=== PATIENT | female | born 1980 | race African-American/Black ===

== ENCOUNTER 2017-10-28 18:03 | Emergency (ER) | payer MEDICAID ==
[2017-10-28] MEDS ORDERED: NORMAL SALINE 1000 ML 1,000 ML IV ONE (18:34)
[2017-10-28] MEDS ORDERED: ONDANSETRON HCL INJ/PF 4 MG/2 ML SDV IV ONE (18:34)
--- NOTE | 2017-10-28 18:40 | ER Document Report ---
ED Medical Screen (RME) - General Chief Complaint: Abdominal Pain Stated Complaint: ABDOMINAL PAIN Time Seen by Provider: 10/28/17 18:33 Mode of Arrival: Ambulatory Information source: Patient TRAVEL OUTSIDE OF THE [place] IN LAST 30 DAYS: No - HPI Patient complains to provider of: abd pain Onset: This morning - pt. with h/o UC with abd pain starting earlier today with vomiting - Related Data Allergies/Adverse Reactions: acetaminophen [From Tylenol] Adverse Reaction (Verified 11/22/13 13:16) Liver damage droperidol [Droperidol] Adverse Reaction (Verified 11/22/13 13:16) Liver damage fentanyl [Fentanyl] Adverse Reaction (Verified 11/22/13 13:16) Liver damage ketorolac tromethamine [From Toradol] Adverse Reaction (Verified 11/22/13 13:16) Liver damage NSAIDS (Non-Steroidal Anti-Inflamma [Nsaids] Adverse Reaction (Verified 13:16) Liver damage tramadol [Tramadol] Adverse Reaction (Verified 11/22/13 13:16) Liver damage Past Medical History GI Medical History: Reports: Hx Ulcerative Colitis Past Surgical History: Reports: Hx Section - Immunizations Hx Diphtheria, Pertussis, Tetanus Vaccination: Yes Physical Exam - Vital signs Vitals: Temp Pulse Resp BP Pulse Ox 98.7 F 104 H 18 120/81 99 10/28/17 18:25 10/28/17 18:25 10/28/17 18:25 10/28/17 18:25 10/28/17 18:25 Course - Vital Signs Vital signs: Temp Pulse Resp BP Pulse Ox 98.7 F 104 H 18 120/81 99 10/28/17 18:25 10/28/17 18:25 10/28/17 18:25 10/28/17 18:25 10/28/17 18:25
[2017-10-28] MEDS ORDERED: HYDROMORPHONE HCL INJ/PF 2 MG/ML AMPULE IV ONE ×2 (18:44→22:40)
--- NOTE | 2017-10-28 19:29 | RADIOLOGY REPORT (SQ) ---
EXAM DESCRIPTION: ACUTE ABDOMEN SERIES COMPLETED DATE/TIME: 10/28/2017 7:06 pm REASON FOR STUDY: abd pain COMPARISON: None. NUMBER OF VIEWS: Three views. TECHNIQUE: Frontal chest, supine abdomen and upright/decubitus abdomen radiographic images acquired. LIMITATIONS: None. FINDINGS: CHEST: Lungs clear of infiltrates. Right chest port. FREE AIR: None. No abnormal gas collections. BOWEL GAS PATTERN: Nonobstructive pattern. No dilated loops or air fluid levels. CONSTIPATION: mild. CALCIFICATIONS: No suspicious calcifications. HARDWARE: None in the abdomen. SOFT TISSUES: No gross mass or suggestion of organomegaly. BONES: No acute fracture. No worrisome bone lesions. OTHER: No other significant finding. IMPRESSION: NO RADIOGRAPHIC EVIDENCE FOR ACUTE ABDOMINAL DISEASE. CONSTIPATION. TECHNICAL DOCUMENTATION: JOB ID: [id number] [place]-72 2010 [employer]- All Rights Reserved Reading location - IP/workstation name: [employer]
[2017-10-28 20:22] LABS: HEMATOCRIT 42.5 % (36.0-47.0); HEMOGLOBIN 14.6 g/dL (12.0-15.5); MEAN CORPUSCULAR HEMOGLOBIN 29.5 pg (27.0-33.4); MEAN CORPUSCULAR HGB CONC 34.3 g/dL (32.0-36.0); MEAN CORPUSCULAR VOLUME 86 fl (80-97); PLATELET COUNT 295 10^3/uL (150-450); RED BLOOD COUNT 4.95 10^6/uL (3.72-5.28); RED CELL DISTRIBUTION WIDTH 13.3 % (11.5-14.0); WHITE BLOOD COUNT 22.8 10^3/uL (4.0-10.5)
[2017-10-28 20:27] LABS: ALANINE AMINOTRANSFERASE 31 U/L (9-52); ALKALINE PHOSPHATASE 87 U/L (38-126); ANION GAP 16 (5-19); ASPARTATE AMINO TRANSFERASE 25 U/L (14-36); BILIRUBIN,DIRECT 0.5 mg/dL (0.0-0.4); BILIRUBIN,TOTAL 0.5 mg/dL (0.2-1.3); BLOOD UREA NITROGEN 12 mg/dL (7-20); CARBON DIOXIDE 22 mmol/L (22-30); CHLORIDE 102 mmol/L (98-107); GLUCOSE 259 mg/dL (75-110); LIPASE 95.3 U/L (23-300); POTASSIUM 3.8 mmol/L (3.6-5.0); SODIUM 140.4 mmol/L (137-145); TOTAL PROTEIN 7.3 g/dL (6.3-8.2)
[2017-10-28 20:53] LABS: ABSOLUTE LYMPHOCYTES# (MANUAL) 2.5 10^3/uL (0.5-4.7); ABSOLUTE MONOCYTES # (MANUAL) 0.9 10^3/uL (0.1-1.4); ABSOLUTE NEUTROPHILS# (MANUAL) 19.4 10^3/uL (1.7-8.2); BASOPHILS % (MANUAL) 0 % (0-2); EOSINOPHILS % (MANUAL) 0 % (0-6); LYMPHOCYTES % (MANUAL) 11 % (13-45); MONOCYTES % (MANUAL) 4 % (3-13); SEGMENTED NEUTROPHILS % (MAN) 85 % (42-78); TOTAL CELLS COUNTED 100
[2017-10-28 20:55] LABS: TOXIC GRANULATION SLIGHT; TOXIC VACUOLATION PRESENT
[2017-10-28 20:56] LABS: PLATELET COMMENT ADEQUATE
[2017-10-28] MEDS ORDERED: CEFTRIAXONE INJ 1000 MG VIAL IV ONE (22:11)
[2017-10-28] MEDS ORDERED: METHYLPREDNISOLONE INJ 125 MG/2 ML SDV IV ONE (22:11)
[2017-10-28] MEDS ORDERED: METRONIDAZOLE 500 MG/NS RTU 100 ML IV ONE (22:13)
[2017-10-28] MEDS ORDERED: MORPHINE SULFATE 10 MG/ML INJ IV PRN (22:13)
--- NOTE | 2017-10-28 22:15 | ER Document Report ---
ED General - General Chief Complaint: Abdominal Pain Stated Complaint: ABDOMINAL PAIN Time Seen by Provider: 10/28/17 18:33 Mode of Arrival: Ambulatory Notes: Patient is a 37-year-old female with past medical history of ulcerative colitis as well as a surgical history of a cholecystectomy who presents with 3-4 days of progressively worsening generalized abdominal pain, vomiting with inability to tolerate oral intake for at least the past 24 hours, as well as not having had a bowel movement in the past 5 days. She describes her abdominal pain as a generalized, cramping, aching pain. Nothing improves or worsens that pain. Patient states that she has been trying stool softeners and MiraLAX to try to relieve any constipation that she may have without any improvement of her abdominal pain. She also reports that she has not had a bowel movement in 5 days only having a mucousy substance past when she attempted to have a bowel movement. She states this feels similar to prior flares of her ulcerative colitis that she has had in the past. She currently receives her Remicade infusion every 3 weeks and states that she has not missed any dosing. She has not yet followed up with her GI doctor regarding today's concerns. TRAVEL OUTSIDE OF THE [place] IN LAST 30 DAYS: No - Related Data Allergies/Adverse Reactions: metoclopramide [From Reglan] Adverse Reaction (Severe, Verified 10/28/17 18:40) Dystonia acetaminophen [From Tylenol] Adverse Reaction (Verified 11/22/13 13:16) Liver damage droperidol [Droperidol] Adverse Reaction (Verified 11/22/13 13:16) Liver damage fentanyl [Fentanyl] Adverse Reaction (Verified 11/22/13 13:16) Liver damage ketorolac tromethamine [From Toradol] Adverse Reaction (Verified 11/22/13 13:16) Liver damage NSAIDS (Non-Steroidal Anti-Inflamma [Nsaids] Adverse Reaction (Verified 13:16) Liver damage tramadol [Tramadol] Adverse Reaction (Verified 11/22/13 13:16) Liver damage Past Medical History - General Information source: Patient - Social History Smoking Status: Never Smoker Chew tobacco use (# tins/day): No Frequency of alcohol use: None Drug Abuse: None Lives with: Family Family History: Reviewed & Not Pertinent, DM, Hypertension, Other - CHF Patient has suicidal ideation: No Patient has homicidal ideation: No Renal/ Medical History: Denies: Hx Peritoneal Dialysis GI Medical History: Reports: Hx Ulcerative Colitis Past Surgical History: Reports: Hx Section - Immunizations Hx Diphtheria, Pertussis, Tetanus Vaccination: Yes Review of Systems - Review of Systems Notes: Constitutional: Negative for fever. HENT: Negative for sore throat. Eyes: Negative for visual changes. Cardiovascular: Negative for chest pain. Respiratory: Negative for shortness of breath. Gastrointestinal: Positive for abdominal pain and vomiting Genitourinary: Negative for dysuria. Musculoskeletal: Negative for back pain. Skin: Negative for rash. Neurological: Negative for headaches, weakness or numbness. 10 point ROS negative except as marked above and in HPI. Physical Exam - Vital signs Vitals: Temp Pulse Resp BP Pulse Ox 98.7 F 104 H 18 120/81 99 10/28/17 18:25 10/28/17 18:25 10/28/17 18:25 10/28/17 18:25 10/28/17 18:25 Interpretation: Tachycardic Notes: PHYSICAL EXAMINATION: GENERAL: Appears moderately uncomfortable but in no acute distress HEAD: Atraumatic, normocephalic. EYES: Pupils equal round and reactive to light, extraocular movements intact, sclera anicteric, conjunctiva are normal. ENT: nares patent, oropharynx clear without exudates. Dry mucous membranes. NECK: Normal range of motion, supple without lymphadenopathy LUNGS: Breath sounds clear to auscultation bilaterally and equal. No wheezes rales or rhonchi. HEART: Regular tachycardia without murmurs ABDOMEN: Soft, generalized abdominal tenderness without any localization of the pain on palpation, normoactive bowel sounds. No guarding, no rebound. No masses appreciated. EXTREMITIES: Normal range of motion, no pitting or edema. No cyanosis. NEUROLOGICAL: No focal neurological deficits. Moves all extremities spontaneously and on command. PSYCH: Normal mood, normal affect. SKIN: Warm, Dry, normal turgor, no rashes or lesions noted. Course - Re-evaluation Re-evalutation: 10/28/17 22:13 Patient presents with generalized abdominal pain, vomiting and lack of a bowel movement for at least the past 7 days. Labs are notable for a marked leukocytosis and hyperglycemia but otherwise unremarkable. Her three-view abdomen demonstrates constipation but no evidence of an overt obstruction. The patient does have a long-standing history of ulcerative colitis and her clinical history appears to be most consistent with an acute ulcerative colitis flare. The patient has declined a CT scan of abdomen pelvis to further clarify stating that she has had so many of these that she is no longer comfortable with this unless it is an absolute necessity. She has already had a cholecystectomy and a do not suspect an acute biliary pathology. Clinical history is not consistent with an acute pancreatitis, bowel perforation, mesenteric ischemia, or an acute appendicitis. Given the degree of the patient' s pain, her persistent vomiting, and lab derangements I do not believe it is safe for her to be discharged home. I will begin treating her with IV steroids , IV antibiotics, IV fluids and will request hospitalization. 10/29/17 00:11 I did attempt to discuss this case with the hospitalist Dr. Varela who did not feel comfortable except in this patient as we do not have GI coverage. I do not feel this patient warrants emergent transfer for GI consultation as it seems very reasonable to trial the patient on IV steroids, antibiotics and fluids as well as symptom control and see if she has improvement in her symptoms. If she is failing to improve at that time I think a CT scan will be appropriate to evaluate for any possible surgical pathology and the patient is also agreeable to this plan. However Dr. Varela did not feel comfortable with this plan. I therefore contacted [facility] and spoke with Dr. Escamilla the hospitalist mill tender second operator. He likewise did not see an indication for transfer and would like to speak to the hospitalist directly to clarify the indication for transfer. 10/29/17 00:53 Dr. Escamilla is accepted the patient although apparently Dr. Varela did refuse to speak to him regarding consideration of keeping this patient here at this hospital. I am concerned that there may be an EMTALA violation at this point as the patient does not appear to require an emergent transfer and the accepting physician is also stating he has concerns about the validity of this transfer. He is however being gracious in accepting this transfer. I am following hospital protocol for notifying the appropriate administrator pesticide of this possible violation prior to transferring the patient. - Vital Signs Vital signs: Temp Pulse Resp BP Pulse Ox 98.5 F 88 18 129/88 H 99 10/28/17 23:22 10/28/17 23:22 10/28/17 23:22 10/28/17 23:22 10/28/17 23:22 - Laboratory Result Diagrams: 10/28/17 19:30 10/28/17 19:30 Laboratory results interpreted by me: 10/28/17 10/28/17 19:30 19:30 WBC 22.8 H Seg Neuts % (Manual) 85 H Lymphocytes % (Manual) 11 L Abs Neuts (Manual) 19.4 H Glucose 259 H Direct Bilirubin 0.5 H - Diagnostic Test Radiology reviewed: Image reviewed, Reports reviewed Radiology results interpreted by me: 10/29/17 01:20 3 view of the abdomen: Constipation, no evidence of obstruction or free air Discharge - Discharge Clinical Impression: Generalized abdominal pain Ulcerative colitis Qualifiers: Ulcerative colitis location: unspecified ulcerative colitis location Digestive disease complication type: unspecified complication Qualified Code(s): K51.919 - Ulcerative colitis, unspecified with unspecified complications Vomiting Qualifiers: Vomiting type: unspecified Vomiting Intractability: intractable Nausea presence : with nausea Qualified Code(s): R11.2 - Nausea with vomiting, unspecified Leukocytosis Qualifiers: Leukocytosis type: unspecified Qualified Code(s): D72.829 - Elevated white blood cell count, unspecified Condition: Fair Disposition: [facility]
[2017-10-29] MEDS ORDERED: PROMETHAZINE HCL INJ 25 MG/1 ML VIAL IV ONE ×2 (00:55→02:58)
[2017-10-29] MEDS ORDERED: DIPHENHYDRAMINE HCL 50 MG/ML VIAL IV ONE (01:14)
[2017-10-29] MEDS ORDERED: HYDROMORPHONE HCL INJ/PF 2 MG/ML AMPULE IV PRN ×2 (02:59→05:52)
--- NOTE | 2017-10-29 03:34 | PDOC CONSULTATION ---
Consultation Consult reason:: Ulcerative colitis flare. History of Present Illness Patient complains of: Nausea vomiting and worsening abdominal pain and constipation for about a week. History of Present Illness: HALEIGH MENDOZA is a 37 year old female history of ulcerative colitis (on Remicade) and type 2 diabetes mellitus presented to the ED with above-mentioned complaints. The patient complains of generalized abdominal pain mainly on the right side which she describes as spasm/cramping, 10/10 in intensity somewhat improved with IV Dilaudid given in the ED. She said that she has been nauseous and vomiting for several days. Her vomitus was of food consistency and sometimes bilious, no hematemesis. She denied any fever chills. Her appetite has been poor. She also has been constipated for more than a week despite taking MiraLAX. She usually follows with Dr. Cm Fuentes (GI in [place] ) and she is on Remicade every 3 weeks. Her next dose is on 11/03/2017. In the ED, her temperature was 98.7, heart rate 104, respiratory rate 18, blood pressure 120/81 with oxygen saturation of 99% on room air. Her WBC was 22.8 with a hemoglobin of 14.6. An acute abdominal series was done which only showed obstipation. She received 1 g of Rocephin 1 and 500 mg IV Flagyl 1 in addition to 1 mg IV Dilaudid 2 and multiple doses of Phenergan with some improvement in her symptoms. Past Medical History Endocrine Medical History: Reports: Diabetes Mellitus Type 2 GI Medical History: Reports: Ulcerative Colitis Past Surgical History Past Surgical History: Reports: Section, Cholecystectomy Social History Lives with: Family Smoking Status: Never Smoker Cigarettes Packs Per Day: 0 Frequency of Alcohol Use: None Family History Family History: DM, Hypertension, Other - CHF Parental Family History Reviewed: Yes - Mother: Heart disease and diabetes Children Family History Reviewed: No Sibling(s) Family History Reviewed.: Yes Medication/Allergy Home Medications: Oxycodone HCl 5 mg PO ASDIR PRN 11/22/13 Oxycodone HCl [Oxy-Ir 5 mg Tablet] 5 mg PO Q4HP PRN #12 tab 11/22/13 Promethazine HCl [Phenergan 25 mg Tablet] 25 - 50 mg PO ASDIR PRN 11/22/13 Remicade 11/22/13 Allergies/Adverse Reactions: metoclopramide [From Reglan] Adverse Reaction (Severe, Verified 10/28/17 18:40) Dystonia acetaminophen [From Tylenol] Adverse Reaction (Verified 11/22/13 13:16) Liver damage droperidol [Droperidol] Adverse Reaction (Verified 11/22/13 13:16) Liver damage fentanyl [Fentanyl] Adverse Reaction (Verified 11/22/13 13:16) Liver damage ketorolac tromethamine [From Toradol] Adverse Reaction (Verified 11/22/13 13:16) Liver damage NSAIDS (Non-Steroidal Anti-Inflamma [Nsaids] Adverse Reaction (Verified 13:16) Liver damage tramadol [Tramadol] Adverse Reaction (Verified 11/22/13 13:16) Liver damage Review of Systems ROS unobtainable: Other - Pertinent positives and negatives as per HPI. Physical Exam Vital Signs: Temp Pulse Resp BP Pulse Ox 98.5 F 88 18 129/88 H 99 10/28/17 23:22 10/28/17 23:22 10/28/17 23:22 10/28/17 23:22 10/28/17 23:22 Intake & Output 10/27/17 10/28/17 10/29/17 06:59 06:59 06:59 Weight 92.2 kg General appearance: PRESENT: no acute distress, well-developed, well-nourished Head exam: PRESENT: atraumatic, normocephalic Eye exam: PRESENT: conjunctiva pink, PERRLA. ABSENT: scleral icterus Mouth exam: PRESENT: moist, tongue midline Neck exam: PRESENT: full ROM. ABSENT: JVD, lymphadenopathy Respiratory exam: PRESENT: clear to auscultation [place]. ABSENT: rales, rhonchi, wheezes Cardiovascular exam: PRESENT: RRR - S1 S2 normal. Pulses: PRESENT: normal dorsalis pedis pul GI/Abdominal exam: PRESENT: normal bowel sounds, soft. ABSENT: distended, guarding, rebound, tenderness Rectal exam: PRESENT: deferred Extremities exam: PRESENT: full ROM. ABSENT: pedal edema Neurological exam: PRESENT: alert, awake, oriented to person, oriented to place , oriented to time, oriented to situation. ABSENT: motor sensory deficit Psychiatric exam: PRESENT: appropriate affect, normal mood Skin exam: PRESENT: dry, intact, warm. ABSENT: cyanosis, rash Results Laboratory Results: 10/28/17 19:30 10/28/17 19:30 10/28/17 10/28/17 10/28/17 19:30 19:30 19:30 WBC 22.8 H RBC 4.95 Hgb 14.6 Hct 42.5 MCV 86 MCH 29.5 MCHC 34.3 RDW 13.3 Plt Count 295 Seg Neutrophils % Not Reportable Lymphocytes % Not Reportable Monocytes % Not Reportable Eosinophils % Not Reportable Basophils % Not Reportable Absolute Neutrophils Not Reportable Absolute Lymphocytes Not Reportable Absolute Monocytes Not Reportable Absolute Eosinophils Not Reportable Absolute Basophils Not Reportable Sodium 140.4 Potassium 3.8 Chloride 102 Carbon Dioxide 22 Anion Gap 16 BUN 12 Creatinine 0.92 Est GFR ( Amer) > 60 Est GFR (Non-Af Amer) > 60 Glucose 259 H Calcium 9.0 Total Bilirubin 0.5 AST 25 ALT 31 Alkaline Phosphatase 87 Total Protein 7.3 Albumin 4.0 Lipase 95.3 Serum HCG, Qual NEGATIVE Impressions: Acute Abdomen Series 10/28/17 18:34 IMPRESSION: NO RADIOGRAPHIC EVIDENCE FOR ACUTE ABDOMINAL DISEASE. CONSTIPATION. Assessment & Plan - Diagnosis (1) Ulcerative colitis Qualifiers: Ulcerative colitis location: unspecified ulcerative colitis location Digestive disease complication type: unspecified complication Qualified Code(s ): K51.919 - Ulcerative colitis, unspecified with unspecified complications Is this a current diagnosis for this admission?: Yes (2) Exacerbation of ulcerative colitis Qualifiers: Digestive disease complication type: unspecified complication Qualified Code(s): K51.919 - Ulcerative colitis, unspecified with unspecified complications Is this a current diagnosis for this admission?: Yes Plan: Her abdominal series was done which only showed constipation. There was no abdominal CAT scan done at this time. The patient's WBC is 22.8 and she is immunocompromised, currently receiving Remicade every 3 weeks. She follows with GI in [place] and her next dose is 11/03/2017. Given that the GI service is not available at this facility till 11/29/2017 and that she may have a complicated colitis (I.e, abdominal abscess), I recommend that the patient be transferred out to optimize her medical care and provide her with any surgical intervention if required. I discussed her case with Dr. Larson in the ED who is in agreement to transfer the patient. I also discussed my concerns with the patient who agrees to be transferred. Thank you very much for the consultation. - Time Time Spent: Greater than 70 Minutes Medications reviewed and adjusted accordingly: Yes
[2017-10-29] MEDS ORDERED: HYDROMORPHONE HCL INJ/PF 2 MG/ML AMPULE IV ONE (03:58)
[2017-10-29] MEDS ORDERED: ZOLPIDEM TARTRATE 5 MG TABLET PO ONE (04:50)
[2017-10-29] MEDS ORDERED: LORAZEPAM INJ 2 MG/1 ML VIAL IV ONE (04:50)
[2017-10-29 07:46] VITALS: BP 116/71
== END 2017-10-29 07:51 | disposition short-term general hospital (02) ==
LOC: ER 18:03
DX: K51.919 Ulcerative colitis, unspecified with unspecified complications (principal); Z79.899 Other long term (current) drug therapy; K59.00 Constipation, unspecified; R10.84 Generalized abdominal pain; R11.2 Nausea with vomiting, unspecified; D72.829 Elevated white blood cell count, unspecified; Z90.49 Acquired absence of other specified parts of digestive tract; R00.0 Tachycardia, unspecified; E11.65 Type 2 diabetes mellitus with hyperglycemia
CPT/HCPCS: 96376; 99285; 96361; 96375; 96365; 36415; 87040; 83690; 84703; 85025; 80053; 74022; J1200; J3490; J2930; J1170 ×2; J2060; J2550; J0696; J2405; J7030